=== PATIENT | female | born 1970 | race Caucasian/White ===

== ENCOUNTER 2018-04-12 14:12 | Emergency (ER) | payer BC ==
[2018-04-12 15:50] LABS: ABS Basophils 0.1 10^3/ul (0-0.2); ABS Eosinophils 0.2 10^3/ul (0-0.6); ABS Lymphocytes 2.4 10^3/ul (1.0-4.8); ABS Monocytes 0.4 10^3/ul (0-0.8); ABS Nucleated RBC 0 10^3/ul; Hematocrit 41 % (35-47); Hemoglobin 14.1 g/dl (12.0-16.0); Lymphocyte % 39.3 % (25-47); Mean Corpuscular HGB Conc 35 g/dl (31-36); Mean Corpuscular Hemoglobin 31 pg (27-31); Mean Corpuscular Volume 91 fL (80-97); Mean Platelet Volume 9.3 um3 (7.4-10.4); Nucleated Red Blood Cells % 0; Platelet Count 210 10^3/ul (150-450); Red Cell Distribution Width 14 % (10.5-15)
--- NOTE | 2018-04-12 16:06 | RAD ---
Indication: Chest pain. Single frontal view of the chest performed at 1553 hours was reviewed. No prior study is available for comparison. No mediastinal shift is noted. Heart is of normal size and configuration. Lung zhang appear clear. IMPRESSION: NO ACTIVE CARDIOPULMONARY DISEASE IS NOTED.
[2018-04-12 16:10] LABS: EGFR Non-African American 77.4 (>60)
[2018-04-12] MEDS ORDERED: Aspirin 81 mg CHEW TAB* 81 MG TAB.CHEW PO ONE (16:33)
[2018-04-12] MEDS: Ibuprofen TAB* 600 MG PO ONE ×2 (17:19→17:46)
[2018-04-12] MEDS ORDERED: Ibuprofen TAB* 400 MG PO ONE (17:37)
[2018-04-12 18:57] VITALS: BP 113/71
--- NOTE | 2018-04-12 20:38 | ED ---
Gurmeet Uriostegui Simon, scribed for Dixon Haro MD on 04/12/18 at 1632 . HPI Chest Pain - HPI Summary HPI Summary: This patient is a 47 year old F presenting to [facility] accompanied by with a chief complaint of 5/10 severity CP/tightness since 1200 today. Pt describes pain as dull and squeezing, worse upon deep inspiration. Located slightly left, upper sternal chest. Pt laid down on the floor for 40 minutes after noticing sx while on phone. Sx didnt subside. Pain still present, not with every breath, a low level tight feeling. She ran a marathon on 04/09, and noted chest soreness then. Todays chest pain is different, as its concentrated instead of diffuse. The pain was a 6/10 at its worst. She describes the pain currently as just a tightening, and like sore muscles; the pain has subsided by now. She endorses right sided neck spasmy sensation during training for the marathon , which is similar to the chest pain she feels today. Pt endorses a lot of stress and transitions in her life right now. Pt denies nausea, sweats, SOB, cough, edema, leg/calf pain, and pain radiation. She denies taking any pain meds today. Pt denies recent sickness, trauma, and taking any medications. Pt denies FHx heart problems or SHx smoking. - History of Current Complaint Chief Complaint: EDChestPainROMI Time Seen by Provider: 04/12/18 14:42 Hx Obtained From: Patient Onset/Duration: Started Hours Ago - 1200, Still Present Timing: Constant, Lasting Hours Initial Severity: Moderate Current Severity: Moderate Pain Intensity: 5 Pain Scale Used: 0-10 Numeric Chest Pain Location: Upper Sternal Chest Pain Radiates: No Character: Dull/Aching, Pressure/Squeezing Aggravating Factor(s): Deep Breaths - especially inspiration Alleviating Factor(s): Rest Associated Signs and Symptoms: Positive: Chest Pain, Recent Stress. Negative: Shortness of Breath, Diaphoresis, Nausea, Cough, Abdominal Pain, Calf Pain/ Swelling, Vomiting, Edema Related History: Recent Trauma - recent /2 marathon ran 04/09/18 - Allergy/Home Medications Allergies/Adverse Reactions: Allergies Allergy/AdvReac Type Severity Reaction Status Date / Time No Known Allergies Allergy Verified 03/02/16 13:39 Home Medications: Home Medications NK [No Home Medications Reported] 04/12/18 [History Confirmed 04/12/18] PMH/Surg Hx/FS Hx/Imm Hx Endocrine/Hematology History: Denies: Hx Diabetes, Hx Thyroid Disease Cardiovascular History: Denies: Hx Congestive Heart Failure, Hx Deep Vein Thrombosis, Hx Hypertension , Hx Myocardial Infarction, Hx Pacemaker/ICD Respiratory History: Denies: Hx Asthma, Hx Chronic Obstructive Pulmonary Disease (COPD), Hx Lung Cancer, Hx Pneumonia, Hx Pulmonary Embolism GI History: Denies: Hx Gall Bladder Disease, Hx Gastrointestinal Bleed, Hx Ulcer, Hx Urosepsis History: Denies: Hx Kidney Stones, Hx Renal Disease Sensory History: Denies: Hx Legally Blind, Hx Deafness Opthamlomology History: Denies: Hx Legally Blind EENT History: Denies: Hx Deafness Neurological History: Denies: Hx Dementia, Hx Migraine, Hx Seizures, Hx Transient Ischemic Attacks (TIA) Psychiatric History: Denies: Hx Anxiety, Hx Depression, Hx Schizophrenia, Hx Bipolar Disorder - Cancer History Hx Chemotherapy: No Hx Radiation Therapy: No Infectious Disease History: No Infectious Disease History: Denies: Hx Hepatitis, Hx Human Immunodeficiency Virus (HIV), Traveled Outside the [place] in Last 30 Days - Family History Known Family History: Positive: None Negative: Cardiac Disease - Social History Alcohol Use: Weekly Substance Use Type: Reports: None Hx Tobacco Use: No Smoking Status (MU): Never Smoked Tobacco Review of Systems Negative: Skin Diaphoresis Positive: Chest Pain Negative: Shortness Of Breath, Cough Negative: Abdominal Pain, Nausea Positive: Myalgia - right sided neck, intercostals. Negative: Edema Positive: Other - Increased stress in life currently All Other Systems Reviewed And Are Negative: Yes Physical Exam - Summary Physical Exam Summary: General: well-appearing, no pain distress Skin: warm, color reflects adequate perfusion, dry Head: normal Eyes: EOMI, CE ENT: normal Neck: supple, non-tender Respiratory: CTA, breath sounds present Cardiovascular: RRR Abdomen: soft, non-tender Bowel: present Musculoskeletal: normal, strength/ROM intact Neurological: sensory/motor intact, A&O x3 Psychological: affect/mood appropriate Triage Information Reviewed: Yes Vital Signs On Initial Exam: Initial Vitals Temp Pulse Resp BP Pulse Ox 99.4 F 74 16 106/66 100 04/12/18 14:17 04/12/18 14:17 04/12/18 14:17 04/12/18 14:17 04/12/18 14:17 Vital Signs Reviewed: Yes Diagnostics - Vital Signs Vital Signs Temp Pulse Resp BP Pulse Ox 04/12/18 14:17 99.4 F 74 16 106/66 100 - Laboratory Lab Results: Lab Results 04/12/18 04/12/18 04/12/18 Range/Units 15:40 15:41 15:41 WBC 6.0 (3.5-10.8) 10^3/ul RBC 4.50 (4.00-5.40) 10^6/ul Hgb 14.1 (12.0-16.0) g/dl Hct 41 (35-47) % MCV 91 (80-97) fL MCH 31 (27-31) pg MCHC 35 (31-36) g/dl RDW 14 (10.5-15) % Plt Count 210 (150-450) 10^3/ul MPV 9.3 (7.4-10.4) um3 Neut % (Auto) 49.2 (38-83) % Lymph % (Auto) 39.3 (25-47) % [place] % (Auto) 7.3 H (0-7) % Eos % (Auto) 3.0 (0-6) % Baso % (Auto) 1.2 (0-2) % Absolute Neuts (auto) 3.0 (1.5-7.7) 10^3/ul Absolute Lymphs (auto) 2.4 (1.0-4.8) 10^3/ul Absolute Monos (auto) 0.4 (0-0.8) 10^3/ul Absolute Eos (auto) 0.2 (0-0.6) 10^3/ul Absolute Basos (auto) 0.1 (0-0.2) 10^3/ul Absolute Nucleated RBC 0 10^3/ul Nucleated RBC % 0 Sodium 139 (135-145) mmol/L Potassium 3.8 (3.5-5.0) mmol/L Chloride 105 (101-111) mmol/L Carbon Dioxide 29 (22-32) mmol/L Anion Gap 5 (2-11) mmol/L BUN 19 (6-24) mg/dL Creatinine 0.79 (0.51-0.95) mg/dL Est GFR ( Amer) 99.5 (>60) Est GFR (Non-Af Amer) 77.4 (>60) BUN/Creatinine Ratio 24.1 H (8-20) Glucose 124 H (70-100) mg/dL Lactic Acid 0.7 (0.5-2.0) mmol/L Calcium 9.7 (8.6-10.3) mg/dL Total Bilirubin 0.40 (0.2-1.0) mg/dL AST 15 (13-39) U/L ALT 13 (7-52) U/L Alkaline Phosphatase 44 (34-104) U/L Troponin I 0.00 (<0.04) ng/mL Total Protein 7.1 (6.4-8.9) g/dL Albumin 4.5 (3.2-5.2) g/dL Globulin 2.6 (2-4) g/dL Albumin/Globulin Ratio 1.7 (1-3) Result Diagrams: 04/12/18 15:41 04/12/18 15:40 Lab Statement: Any lab studies that have been ordered have been reviewed, and results considered in the medical decision making process. - Radiology CXR Xray Interpretation: No Acute Changes Radiology Interpretation Completed By: Radiologist - No active cardiopulmonary disease is noted. Dr. Gordon has reviewed this radiology report. - EKG 1416 Cardiac Rate: Bradycardia - 54 BPM EKG Rhythm: Sinus Bradycardia ST Segment: Normal Ectopy: None Chest Pain Course/Dx - Course Course Of Treatment: Medications reviewed. Allergies noted. Left anterior chest pain gone in ED. Discussed results with the patient. She is a low cardiac risk. The second troponin is 6 hours after the chest pain started. F/ U PMD; return to ED if worse. - Diagnoses Provider Diagnoses: Chest pain Discharge - Sign-Out/Discharge Documenting (check all that apply): Discharge/Admit/Transfer - Discharge Plan Condition: Stable Disposition: HOME Patient Education Materials: Chest Pain (ED) Referrals: Shawn Isaacs MD [Primary Care Provider] - Additional Instructions: FOLLOW UP WITH YOUR DOCTOR. RETURN TO THE EMERGENCY DEPARTMENT FOR ANY WORSENING OF YOUR CONDITION; PAIN, SHORTNESS OF BREATH, YOU FEEL ILL OR QUESTIONS OR CONCERNS. - Billing Disposition and Condition Condition: STABLE Disposition: Home The documentation as recorded by the Gurmeet randhawa Simon accurately reflects the service I personally performed and the decisions made by me, Dixon Haro MD.
== END 2018-04-12 19:53 | disposition home or self-care (01) ==
LOC: ED 14:12
DX: R07.89 Other chest pain (principal); R00.1 Bradycardia, unspecified
CPT/HCPCS: 36415; 71045; 80053; 83605; 84484; 85025; 85379; 93005; 99283; A9270-GY